=== PATIENT | female | born 1940 | race Caucasian/White ===

== ENCOUNTER 2018-01-20 08:29 | Outpatient (CLI) | payer MEDICARE | END 2018-01-20 08:30 | disposition home or self-care (01) | LOC: BICMAMMO 08:29 | PROVIDERS: ATTEND Internal Medicine | DX: Z12.31 Encounter for screening mammogram for malignant neoplasm of breast (principal); Z85.3 Personal history of malignant neoplasm of breast | CPT/HCPCS: 77063; 77067 ==

== ENCOUNTER 2018-08-19 08:49 | Outpatient (CLI) | payer MEDICARE ==
--- NOTE | 2018-08-19 12:39 | CT ---
CHEST CT SCAN WITH IV CONTRAST: HISTORY: An 78-year-old female with a history of lung mass. History of left lumpectomy. There is a poorly circumscribed left infrahilar lung mass, measuring 3.2 x 3.4 x 4.7 cm in size. The re are some smaller left hilar lymph nodes, up to 1l.6 cm in size. Minimally enlarged subcarinal lym ph node. Anterior pretracheal nodes up to 1 cm. In addition, there is a poorly circumscribed, somewhat spiculated appearing mass in the anterior righ t apex and right upper lobe, measuring approximately 1.1 x 1.2 cm in size. In addition, there is a t hird, somewhat spiculated, smaller mass, at the level of the right upper major fissure, which measure s approximately 0.7 x 0.7 x 0.9 cm in size. There are some bilateral minimal bullous emphysema perla es and some pleural-based honeycombing. There are some finger-like extension of the large left infrahilar mass, extending into the left lower lobe. Minimal linear parenchymal changes in the left lower lobe, probably related to some chronic f ibrosis or subsegmental atelectasis. There is a somewhat lower attenuation, oblong, circumscribed ma ss at the medial aspect of the left lobe of the liver, measuring approximately 0.7 x 1.2 cm, which is not definitively characterized on this study. Small left upper pole renal cyst. This low attenuati on oblong mass corresponds to a circumscribed hypoechoic mass seen on a prior 01/04/2017 ultrasound s tudy, showing no significant increase in size. IMPRESSION: 1. Large, poorly circumscribed left infrahilar mass. Small adjacent left hilar enlarged lymph nodes , as well as a borderline sized subcarinal lymph node, and some smaller anterior pretracheal nodes. 2. Somewhat spiculated right apical pulmonary nodule. 3. Small, poorly circumscribed nodule along the right major fissure, in the upper right posterior ch est. 4. Small bilateral intrapulmonary lymph nodes along the fissures bilaterally. 5. Small, probably stable, circumscribed, otherwise attenuation density at the medial aspect of the left lobe of the liver. 6. Small cysts involving the upper pole of the left kidney. Consider follow-up PET scan for further assessment. POS: [facility]
[2018-08-19] MEDS ORDERED: Iopamidol 370 76% 100 ML VIAL ONE (13:30)
== END 2018-08-19 08:50 | disposition home or self-care (01) ==
LOC: CT 08:49
PROVIDERS: ATTEND Internal Medicine Critical Care Medicine
DX: R91.8 Other nonspecific abnormal finding of lung field (principal); R59.0 Localized enlarged lymph nodes; R91.1 Solitary pulmonary nodule; N28.1 Cyst of kidney, acquired
CPT/HCPCS: 71260; 82565

== ENCOUNTER 2018-08-23 06:53 | Day surgery (SDC) | payer MEDICARE ==
[2018-08-22 14:09] VITALS: BMI 21.2
[2018-08-23] MEDS ORDERED: Fentanyl 100 MCG/2 ML VIAL ONE (08:34)
[2018-08-23] MEDS ORDERED: Lidocaine 4% PF 5 ML AMP FS SCH (09:30)
[2018-08-23] MEDS ORDERED: Sodium Chloride 0.9% 1,000 ML IV SCH (09:30)
[2018-08-23] MEDS ORDERED: Metoprolol Tartrate 5 MG/5 ML VIAL ONE (10:34)
[2018-08-23] MEDS ORDERED: Diabetic Tussin 200 MG/10 ML UDCUP PO SCH (12:15)
--- NOTE | 2018-08-24 04:18 | OP ---
DATE OF PROCEDURE: 08/23/2018 PROCEDURE PERFORMED: Fiberoptic bronchoscopy, biopsies, and brushings. INDICATION: Chronic cough, hoarseness, and left hilar mass. DESCRIPTION OF PROCEDURE: Ms. Lechuga was sedated with Anesthesia assistance, which was greatly appreciated. She was orally intubated. Could not say what certainty that her true vocal cord was paralyzed. Once she was sedated, the bronchoscope was passed on the endotracheal tube. Right lower lobe, right middle lobe and right upper lobe were inspected. No endobronchial lesions were seen. The left lower lobe was almost completely occluded with a friable mass. This was brushed, washed, and biopsied multiple times. She tolerated the procedure well. She has mild hemoptysis after the procedure. She was observed in the Day Surgery Area for several hours and was felt to be stable to go home. She was given some Robitussin DM prior to discharge for her cough. I have spent a great deal of time talking to her about maintaining her calorie intake and trying to maintain an exercise regimen. Hopefully, we will have a tissue diagnosis on . Job ID: [id number]
== END 2018-08-23 12:57 | disposition home or self-care (01) ==
LOC: SDC 06:53
PROVIDERS: ATTEND Internal Medicine Critical Care Medicine
PROC: 0BBJ8ZX Excision of Left Lower Lung Lobe, Via Natural or Artificial Opening Endoscopic, Diagnostic (ICD-10-PCS; principal; 2018-08-23)
PROC: 0BDJ8ZX Extraction of Left Lower Lung Lobe, Via Natural or Artificial Opening Endoscopic, Diagnostic (ICD-10-PCS; 2018-08-23)
DX: C34.32 Malignant neoplasm of lower lobe, left bronchus or lung (principal); F17.200 Nicotine dependence, unspecified, uncomplicated; Z79.82 Long term (current) use of aspirin; Z79.84 Long term (current) use of oral hypoglycemic drugs; Z79.899 Other long term (current) drug therapy
CPT/HCPCS: 88112; 88305; 88313; 88341; 88342; J3010; J7620

== ENCOUNTER 2018-08-27 13:17 | Emergency (ER) | payer MEDICARE ==
[2018-08-27 13:57] LABS: #Basophils 0.1 thou/uL (0.0-0.2); #Eosinphils 0.2 thou/uL (0.0-0.7); #Lymphocytes 2.9 thou/uL (1.20-3.40); #Monocytes 0.5 thou/uL (0.11-0.59); #Neutrophils 4.6 thou/uL (1.40-6.50); %Basophils 1.5 % (0.0-1.0); %Eosinophils 2.1 % (0.0-10.0); %Lymphocytes 35.3 % (21.0-51.0); %Monocytes 5.9 % (0.0-10.0); %Neutrophils 55.3 % (42.0-75.0); Hemoglobin 13.5 g/dL (12.0-16.0); Mean Corpuscular HGB CONC 34.3 g/dL (32.0-36.0); Mean Corpuscular Hemoglobin 33.3 pg (27.0-31.0); Mean Corpuscular Volume 97.1 fL (78.0-98.0); Mean Platelet Volume 8.3 fL (7.4-10.4); Platelet Count 176 thou/uL (130-400); RBC Distribution Width 11.5 % (11.5-14.5); Red Blood Cell (RBC) Count 4.05 mill/uL (4.20-5.40); White Blood Cell (WBC) Count 8.3 thou/uL (4.8-10.8)
[2018-08-27 14:24] LABS: ALT (SGPT) 18 U/L (8-55); AST (SGOT) 22 U/L (5-34); Albumin 3.8 g/dL (3.4-4.8); Alkaline Phosphatase 59 U/L (40-150); Anion Gap 12 mmol/L (10-20); BUN (Urea Nitrogen) 31 mg/dL (9.8-20.1); Bilirubin, Total 0.6 mg/dL (0.2-1.2); CK (CPK) 38 U/L (29-168); Calc. Creatinine Clearance 0 mL/min (70-130); Calcium 9.7 mg/dL (7.8-10.44); Carbon Dioxide 26 mmol/L (23-31); Chloride 106 mmol/L (98-107); Estimated GFR-MDRD 43; Globulin 3.1 g/dL (2.4-3.5); Glucose 96 mg/dL (83-110); Potassium 4.5 mmol/L (3.5-5.1); Protein, Total 6.9 g/dL (6.0-8.3); Sodium 139 mmol/L (136-145)
--- NOTE | 2018-08-27 14:37 | RAD ---
SINGLE VIEW CHEST: Date: 08/27/18 COMPARISON: 01/01/17. HISTORY: Dizziness and chest pain. FINDINGS: Single view of the chest shows an enlarged but stable cardiomediastinal silhouette with atherosclerot ic calcifications in the aorta. There appears to be a small left pleural effusion. No right pleural e ffusion is seen. Degenerative changes are seen in the spine. IMPRESSION: Small left pleural effusion. POS: [facility]
--- NOTE | 2018-08-30 14:01 | EKG ---
Test Reason : DIZZINESS Blood Pressure : / mmHG Vent. Rate : 101 BPM Atrial Rate : 101 BPM P-R Int : 122 ms QRS Dur : 124 ms QT Int : 340 ms P-R-T Axes : 053 009 099 degrees QTc Int : 440 ms Sinus tachycardia Anteroseptal infarct , age undetermined T wave abnormality, consider lateral ischemia Abnormal ECG Interference Confirmed by MERCEDES CHEEMA, DREA ([id number]), telegraph editor MONET FLORES ([id number]) on 08/30/2018 2:01:26 PM Referred By: Confirmed By:DREA LONG MD
== END 2018-08-27 16:09 | disposition home or self-care (01) ==
LOC: ERS 13:17
DX: D49.89 Neoplasm of unspecified behavior of other specified sites (principal); I25.10 Atherosclerotic heart disease of native coronary artery without angina pectoris; E78.5 Hyperlipidemia, unspecified; I10 Essential (primary) hypertension; E11.9 Type 2 diabetes mellitus without complications; Z87.891 Personal history of nicotine dependence; Z79.82 Long term (current) use of aspirin; Z79.84 Long term (current) use of oral hypoglycemic drugs; Z79.899 Other long term (current) drug therapy
CPT/HCPCS: 71045; 80053; 82550; 83880; 84484; 85025; 93005

== ENCOUNTER 2018-09-01 10:34 | Outpatient (CLI) | payer MEDICARE ==
--- NOTE | 2018-09-01 17:00 | PET ---
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 Exam requested for i nitial staging. TECHNIQUE: PET scanning with CT attenuation correction was performed from the base of the brain through the prox imal thighs following the intravenous administration of 10.5 mCi F18-FDG in the left antecubital simi a. Imaging was performed after an uptake interval of 54 minutes. COMPARISON: None. CORRELATION: CT chest of 08/19/18. FINDINGS: There is intrathoracic neena hypermetabolism in the mediastinum and hilar regions with a maximum SUV of 17.3 in the subcarinal region of the mediastinum, 10.5 in the left hilum, and 9.1 in the right hil um. No neena hypermetabolism is seen in the neck, axilla, abdomen, or pelvis. There is increased FDG localization in the left lower lobe infrahilar mass with a SUV of 18.1 and in the right upper lobe lung nodule with a SUV of 11. Increased FDG localization with a SUV of 8.5 is seen in the suprahepatic IVC mass. Hypermetabolic les ions in the liver have a SUV of 9 in the right lobe and 6 in the left lobe. No hypermetabolic adrenal or skeletal lesions are seen. There is physiologic activity in the GI and tracts, and the visualized portions of the brain. The CT scan used for attenuation correction demonstrates no evidence of pleural effusions or ascites. A calcified gallstone is present. IMPRESSION: Left lower lobe lung malignancy with metastatic disease involving the right lung, intrathoracic lymph nodes, suprahepatic IVC, and liver. POS: [facility]
== END 2018-09-01 10:35 | disposition home or self-care (01) ==
LOC: PET 10:34
PROVIDERS: ATTEND Internal Medicine Hematology & Oncology
DX: C34.32 Malignant neoplasm of lower lobe, left bronchus or lung (principal); C78.7 Secondary malignant neoplasm of liver and intrahepatic bile duct; C77.1 Secondary and unspecified malignant neoplasm of intrathoracic lymph nodes; C78.01 Secondary malignant neoplasm of right lung
CPT/HCPCS: 78815; A9552

== ENCOUNTER 2018-09-02 10:38 | Outpatient (CLI) | payer MEDICARE ==
--- NOTE | 2018-09-02 16:12 | MRI ---
MRI BRAIN WITH AND WITHOUT CONTRAST: Date: 09/02/18 HISTORY: Evaluate for intracranial metastasis. COMPARISON: None. TECHNIQUE: Brain MRI is performed with and without intravenous Gadolinium administration. Multisequential, multi planar imaging is performed. FINDINGS: No hemorrhage on the axial gradient echo sequence. Calvarium has a normal marrow signal intensity. Mi dline brain parenchymal structures are unremarkable. No parenchymal mass, mass effect, or midline ness ft. Brain volume is age-appropriate. Cortical tejada-white matter differentiation is preserved. Ventric les and sulci are patent and symmetric. T2 and FLAIR white matter hyperintensities due to chronic small vessel ischemic change. Central arterial flow-voids are maintained. Absent restricted diffusion. Adequate aeration of the sinuses and mastoid air cells. No pathologic enhancement of the brain parenc hyma. Asymmetrically prominent flow-void at the terminus of the left internal carotid artery. Aneurysm jocelyne ot be excluded, measuring approximately 6.[address] angiogram of the [place] is rec ommended. IMPRESSION: 1. No pathologic enhancement of the brain parenchyma. 2. Absent restricted diffusion. No acute infarct. 3. Possible aneurysm at the terminus of the left internal carotid artery. CT angiogram of the head i s recommended. CODE T. POS: [facility]
== END 2018-09-02 10:39 | disposition home or self-care (01) ==
LOC: MRI 10:38
PROVIDERS: ATTEND Internal Medicine Hematology & Oncology
DX: C34.90 Malignant neoplasm of unspecified part of unspecified bronchus or lung (principal)
CPT/HCPCS: 70553

== ENCOUNTER 2018-09-09 06:03 | Day surgery (SDC) | payer MEDICARE ==
[2018-09-08 16:49] VITALS: BMI 21.9
[2018-09-09] MEDS ORDERED: Fentanyl 100 MCG/2 ML VIAL ONE (06:41)
[2018-09-09] MEDS ORDERED: Propofol 500 MG/50 ML VIAL ONE (06:41)
[2018-09-09] MEDS ORDERED: Lidocaine 2% PF 5 ML VIAL ONE (06:47)
[2018-09-09] MEDS ORDERED: Bupivacaine/Epinephrine 0.25% 30 ML VIAL ONE (06:47)
[2018-09-09] MEDS ORDERED: CEFAZOLIN 2 GM/50 ML BAG ONE (07:06)
--- NOTE | 2018-09-09 09:54 | RAD ---
EXAM: CHEST ONE VIEW: History: 78-year-old female history of status post Mediport placement. Comparison: 08-27-18 FINDINGS: Right Mediport catheter placement. No pneumothorax or pleural effusion. There is some increased densi ty in the left infrahilar region with some patchy changes seen in the left lower lobe, evidence for l eft infrahilar mass with some associated atelectasis but showing improvement in the amount of atelect asis when compared to 08-27-18. IMPRESSION: Right subclavian catheter and injection port placement without pneumothorax or pleural effusion. Abno rmal opacity changes in the left infrahilar region and left base with less volume loss than on the pr ior study. POS: [facility]
[2018-09-09] MEDS ORDERED: Lidocaine 1% PF 5 ML VIAL ONE (20:23)
[2018-09-09] MEDS ORDERED: Ondansetron PF 4 MG/2 ML Vial ONE (20:23)
[2018-09-09] MEDS ORDERED: PROPOFOL 200 MG/20 ML VIAL ONE (20:23)
--- NOTE | 2018-09-12 11:31 | OP ---
DATE OF PROCEDURE: 09/09/2018 PREOPERATIVE DIAGNOSIS: Lung cancer. POSTOPERATIVE DIAGNOSIS: Lung cancer. PROCEDURE PERFORMED: Tunneled central line with subcutaneous port (MediPort right internal jugular). ANESTHESIA: TIVA, local. ESTIMATED BLOOD LOSS: Minimal. COMPLICATIONS: None. SPECIMEN: None. FINDINGS: Tip of the catheter at atriocaval junction DESCRIPTION OF PROCEDURE: The patient was taken to the operating room and laid supine position on the operating room table. After sedation was obtained, bilateral neck and chest were prepped and draped in a sterile fashion. Local anesthetic was infiltrated over the internal jugular vein. The internal jugular vein was cannulated using a 22-gauge finder needle followed by a Seldinger needle. Wire was passed into superior vena cava under fluoro guidance. A small hiren was made to at the wire entrance site. A separate 3 cm incision was made in the right upper chest. Subcutaneous pocket was made below the lower incision. Tubing for the MediPort tunneled from the inferior to the superior incision and suture sheath was placed over the wire into the superior vena cava under fluoro guidance. The dilator and wire were removed. The end of the catheter sewed into the sheath. The sheath was peeled away. The tip of the catheter was at the atriocaval junction. MediPort tubing was cut to fit the MediPort at the lower incision, connected to the MediPort, which was sewn to the chest wall in the subcutaneous pocket using Prolene. MediPort flushes and draws blood without difficulty, it was flushed with a heparin flush. The wounds were all irrigated and closed using 4-0 Monocryl and Dermabond. The patient was sent to Recovery in stable condition. All instrument counts, needle counts, and lap counts were correct. Job ID: [id number]
== END 2018-09-09 09:20 | disposition home or self-care (01) ==
LOC: SDC 06:03
PROVIDERS: ATTEND Surgery
PROC: 02HV33Z Insertion of Infusion Device into Superior Vena Cava, Percutaneous Approach (ICD-10-PCS; principal; 2018-09-09)
PROC: B518ZZA Fluoroscopy of Superior Vena Cava, Guidance (ICD-10-PCS; 2018-09-09)
DX: C34.90 Malignant neoplasm of unspecified part of unspecified bronchus or lung (principal); I10 Essential (primary) hypertension; E11.9 Type 2 diabetes mellitus without complications; Z98.51 Tubal ligation status; Z85.3 Personal history of malignant neoplasm of breast; Z87.891 Personal history of nicotine dependence; Z79.82 Long term (current) use of aspirin; Z79.899 Other long term (current) drug therapy; Z98.890 Other specified postprocedural states
CPT/HCPCS: 36561; 71045; C1788; J1642; J2001; J2405; J2704; J3010

== ENCOUNTER 2018-10-28 13:06 | Outpatient (CLI) | payer MEDICARE ==
[~2018-10-28 13:06] MED LIST: ISOVUE-370 76%-LOCM 1 ML ONE
--- NOTE | 2018-10-28 14:40 | CT ---
CT NECK WITH CONTRAST CT CHEST WITH CONTRAST CT ABDOMEN WITH CONTRAST: INDICATION: Lung cancer. TECHNIQUE: Volumetric CT data acquisition acquired with the use of IV and enteric contrast with imaging performe d from the level of the mandible to the mid sacrum. COMPARISON: Reference is made to 08/19/2018 exam. FINDINGS: Within the imaged neck soft tissues, the visualized submandibular glands, and the thyroid gland are g rossly unremarkable. There is an indwelling right side venous chest port. No cervical chain adenopa thy is visualized. Preepiglottic space and piriform sinuses are patent. No discernible glottic mass . Within the anterior right upper lobe, there is a spiculated nodule measuring 1.5 cm in diameter, s ubpleural in location. There is scattered punctate parenchymal nodularity within the right lung. Cu rvilinear opacity of the posterior and medial left lung indicates scar given its chronicity. No pleu ral effusion. There is diffuse vascular disease. Cholelithiasis is demonstrated. There is a small hepatic hypodensity, grossly stable, located within the medial segment left hepatic lobe. Additional punctate hypodensity medially within the posterior segment right hepatic lobe is stable, too small to definitively characterize. There is no discrete adrenal mass. Punctate hypoattenuation involving bilateral renal parenchyma present, too small to de finitively characterize. The spleen is unremarkable. No discrete pancreatic lesion. The small donnell l is normal in caliber. There is moderate retained fecal material in the colon, and scattered coloni c diverticula are seen. A small hiatal hernia is present. The visualized osseous structures reveal degenerative change and age-related demineralization. Ill-defined hypodensity of the right hilar region is more pronounced. Previously described thoracic lymph nodes are grossly stable. No abdominal adenopathy is seen. IMPRESSION: 1. Interval enlargement of spiculated nodule at the anterior right upper lobe. 2. Prior left lower lobe/perihilar mass has significantly reduced in volume. There is adjacent curv ilinear opacity indicating scar. Mild residual soft tissue prominence of the site of mass may relate to residual malignancy. 3. Stable punctate nodularity of the right lung. 4. Interval increase in size of hypodensity at the right hilum which may relate to progression of ad enopathy, although there is volume averaging of adjacent mediastinal fat. This area is difficult to further discern given its insinuation between bronchovascular structures. This could be further asse ssed with followup PET imaging. Incidental note of lamellated cholelithiasis. POS: [facility]
== END 2018-10-28 13:07 | disposition home or self-care (01) ==
LOC: BICCT 13:06
PROVIDERS: ATTEND Internal Medicine Hematology & Oncology
DX: C34.11 Malignant neoplasm of upper lobe, right bronchus or lung (principal); R91.8 Other nonspecific abnormal finding of lung field
CPT/HCPCS: 71260; 74160; Q9966

== ENCOUNTER 2018-11-26 10:58 | Inpatient (IN) | payer MEDICARE ==
[2018-11-26 11:44] LABS: Band 19 % (5-11); Eosinophils 1 % (0-10); Hemoglobin 9.4 g/dL (12.0-16.0); Lymphocytes 8 % (21-51); MDiff Complete? YES; Macrocytosis SLIGHT = 6-15 cells (100X) (0-5/hpf); Mean Corpuscular HGB CONC 33.2 g/dL (32.0-36.0); Mean Corpuscular Hemoglobin 34.2 pg (27.0-31.0); Mean Platelet Volume 7.4 fL (7.4-10.4); Neutrophil 72 % (42-75); Platelet Count 253 thou/uL (130-400); RBC Distribution Width 14.1 % (11.5-14.5); Red Blood Cell (RBC) Count 2.76 mill/uL (4.20-5.40); White Blood Cell (WBC) Count 39.7 thou/uL (4.8-10.8)
[2018-11-26 11:54] LABS: ALT (SGPT) 8 U/L (8-55); AST (SGOT) 15 U/L (5-34); Albumin 3.9 g/dL (3.4-4.8); Alkaline Phosphatase 95 U/L (40-150); Anion Gap 11 mmol/L (10-20); BUN (Urea Nitrogen) 28 mg/dL (9.8-20.1); Bilirubin, Total 1.3 mg/dL (0.2-1.2); CK (CPK) 19 U/L (29-168); Calc. Creatinine Clearance 0 mL/min (70-130); Calcium 9.9 mg/dL (7.8-10.44); Carbon Dioxide 27 mmol/L (23-31); Chloride 104 mmol/L (98-107); Estimated GFR-MDRD 58; Glucose 117 mg/dL (83-110); Potassium 4.3 mmol/L (3.5-5.1); Protein, Total 6.9 g/dL (6.0-8.3); Sodium 138 mmol/L (136-145)
--- NOTE | 2018-11-26 12:25 | CT ---
LUMBAR SPINE CT SCAN WITHOUT IV CONTRAST: Date: 11/26/18 HISTORY: Low back pain. History of small cell lung cancer. FINDINGS: Bony demineralization. Laminectomy changes at L4-L5 with 0.7 Grade I anterolisthesis of L4 on L5. No evidence for overt metastasis. Generalized disc desiccation changes, and ligament and facet hypertrop hic changes. L1-L2 and L2-L3 disc levels demonstrate no significant stenosis. At L3-L4, there is mild central canal and moderate lateral recess stenosis, and bilateral foraminal s tenosis. Anterolisthesis of L4 on L5, with probable moderate canal stenosis. Thecal sac and disc differentiati on is limited. Moderate to severe bilateral foraminal stenosis. IMPRESSION: No acute fracture or dislocation. Bony demineralization. No evidence for focal metastasis. Postop ag inectomy changes at L4-L5 with Grade I anterolisthesis and associated canal, lateral recess, and fora sindi stenosis. Central canal, lateral recess, and foraminal stenosis at L3-L4. Foraminal stenosis at L5-S1 as above. POS: [facility]
[2018-11-26 13:13] LABS: Bilirubin Negative (Negative); Blood, Urine Negative (Negative); Clarity CLEAR (Clear); Glucose, Urine (Dipstick) Negative (Negative); Leukocyte Negative (Negative); Nitrite Negative (Negative); Protein, Urine (Dipstick) Negative (Neg-Trace); Specific Gravity, Urine 1.017 (1.002-1.036); Urobilinogen 0.2 mg/dL (0.2-1.0)
[2018-11-26] MEDS ORDERED: Ondansetron ODT 4 MG TAB PO PRN (16:12)
[2018-11-26] MEDS ORDERED: Morphine 4 MG/ML VIAL SLOW IVP PRN ×2 (16:16)
[2018-11-26] MEDS ORDERED: Morphine 4 MG/ML VIAL ONE (16:21)
[2018-11-26] MEDS ORDERED: Ondansetron PF 4 MG/2 ML Vial ONE (16:21)
--- NOTE | 2018-11-26 17:04 | CON ---
DATE OF CONSULTATION: REASON FOR CONSULT: Lung cancer. HISTORY OF PRESENT ILLNESS: Ms. Lechuga is an 78-year-old female with extensive stage small cell carcinoma. She recently completed 4 cycles of chemotherapy and immunotherapy. Last cycle was on November 24. She did receive a Neulasta injection on that day. Over the past week, she has complained of low back pain. Urinalysis was done in our office, which was negative. She was started on tramadol p.r.n. This morning, her called and said that she had no relief with the tramadol and she had an episode of emesis. She was referred to the emergency room for further evaluation. In the emergency room, she was noted to have an elevated BUN, slightly dehydrated. She was given IV fluids. She had a white count of 39.7. She underwent a CT scan of her lumbar spine, which showed no acute fracture or dislocation. There was demineralization of the bone. There was no evidence of metastasis. She did have a laminectomy on L4 and L5. There was grade 1 anterolisthesis and associated canal stenosis. The patient was given morphine with resolution of her pain. PAST MEDICAL HISTORY: 1. 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 2. Orthostatic hypotension of unknown etiology. 3. Diabetes. 4. Breast cancer in 1996. PAST SURGICAL HISTORY: 1. Breast surgery. 2. Low back laminectomy. 3. Atopic . ALLERGIES: NO KNOWN DRUG ALLERGIES. HOME MEDICATIONS: 1. Aspirin 81 mg daily. 2. Atorvastatin 20 mg daily. 3. Lasix 20 mg daily. 4. Lisinopril 10 mg daily. 5. Metformin 500 mg daily. 6. Midodrine daily. 7. Tramadol p.r.n. FAMILY HISTORY: Noncontributory. SOCIAL HISTORY: , has 3 children. Lives with her spouse. Twenty pack year history of smoking. No alcohol or illicit drug use. REVIEW OF SYSTEMS: A 10-point review of systems is positive for weight loss, poor appetite, emesis, and back pain. Otherwise negative. PHYSICAL EXAMINATION: VITAL SIGNS: She is afebrile. Her BP is elevated at 171/81. GENERAL: Slightly cachectic female, in no acute distress. HEENT: Normocephalic and atraumatic. Pupils are equal and reactive to light. NECK: Supple. CV: Regular rate and rhythm. LUNGS: Diminished throughout. ABDOMEN: Soft and nontender. Bowel sounds are positive. EXTREMITIES: No clubbing, cyanosis, or edema. SKIN: No rash. HEMATOLOGICAL: No petechiae or purpura. NEUROLOGICAL: Nonfocal. PSYCH: The patient is alert, oriented, and appropriate. LABORATORY DATA: Pertinent labs and x-rays, current WBCs are 39.7, hemoglobin 9.4, hematocrit 28.5, and platelet count 253,000. She has 72% neutrophils, 19% bands , and 9% lymphocytes. Sodium is 138, potassium 4.3, chloride 104, CO2 is 27, BUN is 28, creatinine 0.93, calcium 9.9, bilirubin 1.3, AST is 15, ALT is 8, alkaline phosphatase is 95, serum total protein is 6.9, albumin 3.9, and globulin 3. Troponin is negative and BNP is 181.3. Urine has trace ketones, otherwise negative. Radiology per HPI. ASSESSMENT: 1. Extensive stage small cell lung cancer, status post chemotherapy and immunotherapy with Neulasta support. 2. Low back pain. 3. Dehydration. DISCUSSION: The patient has been receiving IV fluids. She has had no emesis since arrival. We will provide nausea medicine p.r.n. Her white count is elevated. It is likely Neulasta's effect; however, this is fairly soon for the Neulasta to begin working. We will monitor her CBC daily. Lower back pain may be related to her prior laminectomy. We will add Norman p.r.n. and she may need to follow up with her orthopedic surgeon in the outpatient setting. There is no evidence of metastasis in that area. Thank you for the consult. We will follow along with her hospital course. Job ID: [id number] [facility]
[2018-11-26] MEDS ORDERED: Dextrose 50% Abboject 50 ML SYRINGE SLOW IVP PRN (17:32)
[2018-11-26] MEDS ORDERED: Dextrose 5% in Water 1,000 ML IV PRN (17:32)
[2018-11-26] MEDS ORDERED: HumaLOG 300 UNITS/3 ML VIAL SC PRN (17:32)
[2018-11-26] MEDS: Sodium Chloride 0.9% 1,000 ML IV SCH (18:28)
--- NOTE | 2018-11-26 18:41 | HP ---
PRIMARY CARE PHYSICIAN: Gustabo Lombardo MD ONCOLOGIST: Yeni Patel MD CHIEF COMPLAINT: Nausea. HISTORY OF PRESENT ILLNESS: Ms. Lechuga is an 78-year-old female, who reported to the emergency room today for right-sided lower back pain, nausea, vomiting, dyspnea on exertion, generalized weakness, decreased oral intake, and headache. The patient's pertinent medical history, she was recently diagnosed with small cell carcinoma of the left lung with extensive metastasis to the liver. She underwent chemotherapy on . reports that this is her fourth cycle of chemo, after which she will go for PET scans and then follow up with Dr. Patel. Other past medical history is diabetes in 2007, breast cancer in 1996, recent diagnosis of orthostatic hypotension and she was placed on Midodrine for that with moderate success. reports that the patient complains of feeling unsteady on her feet, has some dizziness, and walks around the house with care, especially when ambulating to the bathroom. She does not want to fall. During the evaluation in the emergency room, she was found to have ketone in her urine, but otherwise negative. Lumbar of the spine showed no acute fracture or dislocation. No evidence of focal metastasis. She does have some postop laminectomy changes at L4-L5 with grade 1 anterolisthesis and associated canal lateral recess and [place] stenosis. BUN was 28, glucose 117, and bilirubin 1.3. BNP was 181. White blood cell count is elevated at 39.7, hemoglobin at 9.4, and hematocrit 28.5. She is going to be admitted to the oncology unit for IV hydration, pain medications, and consultation with Oncology. PAST MEDICAL HISTORY: As above, diabetes, breast cancer, and orthostatic hypotension. PAST SURGICAL HISTORY: Breast surgery in 1996, lower back laminectomy in 1997, and atopic in 1969. FAMILY HISTORY: Pertinent for celiac disease. PERSONAL AND SOCIAL HISTORY: The patient is , lives at home with her , has 3 children, was a former smoker. Smoked half a pack for 20 years. Denies alcohol use. Denies any illicit drug use. She is a retired wood shop teacher. ALLERGIES: NONE. CURRENT MEDICATIONS: Per Cancer Clinic note; 1. Midodrine 2.5 mg tablet. 2. Aspirin 81 mg. 3. Atorvastatin 20. 4. Centrum Silver. 5. Cinnamon. 6. Furosemide. 7. Lisinopril. 8. Metformin. 9. Super B-50 complex. REVIEW OF SYSTEMS: GENERAL: The patient denies chills or fever. Does report some generalized weakness. EYES: Denies any vision changes or any eye pain. ENT: Denies any sore throat or rhinorrhea. CARDIOVASCULAR: Denies chest pain or palpitations. Does report some dyspnea on exertion. RESPIRATORY: Denies shortness of breath or cough. GI: Reports appetite changes. Reports nausea. Does report vomiting yesterday. : Denies any dysuria or hematuria. MUSCULOSKELETAL: Reports back pain, right-sided lower back, which is chronic. She reports the nature of bed worse lately. Denies any paresthesias, seizures, sensory changes, speech changes, paralysis, or confusion. Does report some dizziness with ambulation. PSYCH: Denies any suicidal or homicidal ideation. PHYSICAL EXAMINATION: VITAL SIGNS: Blood pressure 171/78, pulse is 73, respirations 18, temperature 98.2, and O2 saturations are 97% on room air. CONSTITUTIONAL: Appears nontoxic, appears pain free, is oriented to person, place, and time. HEENT: Head is atraumatic and normocephalic. Eyes, conjunctiva pale. Pupils are equally round and reactive to light. ENT, mucous membranes are dry. Mouth exam is normal. NECK: Trachea is midline. Normal range of motion. RESPIRATORY: Chest, breath sounds are clear. Chest expansion is equal. CARDIOVASCULAR: Regular heart rate and rhythm with a 4/6 systolic ejection murmur. ABDOMEN: Nontender. No distention. No peritoneal signs. BACK: Normal range of motion. Does have some tenderness to L5-S1 on palpation. No CVA tenderness. EXTREMITIES: Upper extremity, normal inspection. Normal range of motion. Radial pulses equal bilaterally. Lower extremity, normal inspection. Normal range of motion. Motor strength is normal. Sensation intact. Pedal pulses equal bilaterally. No edema is noted. NEURO: The patient is oriented to person, place, and time. Speech is normal. Memory is normal. Cranial nerves 2 through 12 were grossly intact. No focal sensory or motor deficits are noted. SKIN: Warm, dry, and pale in color. No rashes noted. PSYCH: Has a normal affect. IMAGING: EKG in the emergency room shows beat per minute 90, conduction with complete left bundle branch block, nonspecific intraventricular block, and nonspecific T-waves. PERTINENT LABORATORY DATA: UA was done with ketones present, otherwise negative. CK is 19. Sodium 138, potassium 4.3, chloride 104, carbon dioxide 27, gap is 11, BUN is 28, creatinine is 0.93, estimated GFR is 58, glucose is 117, and bilirubin 1.3. Other liver enzymes are unremarkable. BNP is 181. First troponin is undetectable. White blood cell count is 39.7, hemoglobin 9.4, hematocrit 28.5, and platelet count is 253. ASSESSMENT AND PLAN: 1. Dehydration, generalized weakness related to lung cell carcinoma with metastasis to the liver. We will start IV fluids. Provide pain medicine as needed. We will consult Oncology. Alisa Nunn NP has been by to see patient in the emergency room. Reports that she will follow the patient while admitted. 2. Nausea and vomiting. We will order some Zofran p.o. or IV as needed. Diet as tolerated. 3. Orthostatic hypotension. We will restart Midodrine. We will trend. 4. Back pain, chronic. We will provide pain medication as tolerated. We will follow. 5. Gastrointestinal and deep venous thrombosis prophylaxis will be started. 6. Diabetes. We will start home medications. We will place sliding scale coverage with Accu-Cheks before meals and at bedtime. 7. Hospital course will be dependent on clinical findings. Job ID: [id number]
[2018-11-26] MEDS: Ondansetron PF 4 MG/2 ML Vial IVP PRN (20:27)
[2018-11-26] MEDS: Senokot S 8.6-50 MG TAB PO SCH (20:35)
[2018-11-26] MEDS ORDERED: Lorazepam 2 MG/ML VIAL SLOW IVP PRN (21:53)
[2018-11-26] MEDS ORDERED: hydrALAZINE 20 MG/ML VIAL SLOW IVP PRN (21:53)
[2018-11-26] MEDS ORDERED: Digoxin 0.5 MG/2 ML AMP ONE (22:21)
[2018-11-26] MEDS ORDERED: Nitroglycerin 0.4 MG TAB (25 Tab Bottle) PO PRN (22:22)
[2018-11-26 22:27] LABS: Hemoglobin 9.2 g/dL (12.0-16.0); Mean Corpuscular HGB CONC 33.1 g/dL (32.0-36.0); Mean Platelet Volume 7.6 fL (7.4-10.4); Platelet Count 213 thou/uL (130-400); RBC Distribution Width 14.4 % (11.5-14.5); Red Blood Cell (RBC) Count 2.62 mill/uL (4.20-5.40); White Blood Cell (WBC) Count 41.8 thou/uL (4.8-10.8)
[2018-11-26] MEDS ORDERED: Digoxin 0.5 MG/2 ML AMP SLOW IVP SCH (22:30)
[2018-11-26] MEDS ORDERED: Sodium Chloride 0.9% 1,000 ML IV SCH (22:30)
[2018-11-26] MEDS ORDERED: Magnesium 2 GM/50 ML 2 GM in Premix Bag 1 BAG IVPB SCH (22:30)
[2018-11-26 22:43] LABS: Anion Gap 15 mmol/L (10-20); BUN (Urea Nitrogen) 25 mg/dL (9.8-20.1); CK (CPK) 19 U/L (29-168); Calc. Creatinine Clearance 0 mL/min (70-130); Calcium 9.2 mg/dL (7.8-10.44); Carbon Dioxide 20 mmol/L (23-31); Chloride 108 mmol/L (98-107); Estimated GFR-MDRD 70; Glucose 144 mg/dL (83-110); Sodium 139 mmol/L (136-145)
[2018-11-26] MEDS ORDERED: Diltiazem 125 MG in Sodium Chloride 0.9% 100 ML IVPB SCH (22:45)
[2018-11-26 22:48] LABS: Band 19 % (5-11); CKMB 0.7 ng/mL (0-6.6); Lymphocytes 4 % (21-51); MDiff Complete? YES; Macrocytosis SLIGHT = 6-15 cells (100X) (0-5/hpf); Neutrophil 77 % (42-75); Troponin I 0.024 ng/mL (< 0.028)
--- NOTE | 2018-11-26 22:49 | RAD ---
AP VIEW CHEST: 11/26/18 HISTORY: Chest pain. AP view chest is obtained on 11/26/18. Comparison made to a previous exam from 09/09/18. AP view chest demonstrates a right jugular Mediport catheter in place. Mild pulmonary vascular conges tion is seen. No evidence of acute intrathoracic abnormality seen. No evidence of pneumonia seen. No evidence of pneumothorax seen. No evidence of rib fractures seen. There is an old right 8th rib fract ure which is stable and unchanged. IMPRESSION: No evidence of acute intrathoracic abnormality seen. POS: [facility]
[2018-11-26 23:23] LABS: INR-International Normal Ratio 1.1; PTT 26.4 SEC (22.9-36.1); Prothrombin Time 13.8 SEC (12.0-14.7)
--- NOTE | 2018-11-26 23:44 | PDOC.EVN ---
Event Note - Event Note Event Note: Code Green called - HR in 190s. EKG - Afib with RVR. Started on Cardizem drip after Bolus. Digoxin 0.25 mg IV x 1. Transfer to [facility]. Stat labs including d- dimer ordered. Echo. Cardio consult in AM. No history of Afib. One dose of Lovenox.
[2018-11-26] MEDS ORDERED: Magnesium Sulfate 4 GM in Sodium Chloride 0.9% 250 ML 250 ML IVPB SCH (23:45)
[2018-11-26] MEDS ORDERED: Enoxaparin Sodium 60 MG/0.6 ML SYRINGE SC SCH (23:59)
[2018-11-27] MEDS: Sodium Chloride 0.9% 1,000 ML IV SCH ×3 (00:41→15:54)
[2018-11-27 02:09] LABS: White Blood Cell (WBC) Count 45.3 thou/uL (4.8-10.8)
[2018-11-27 02:21] LABS: Band 12 % (5-11); Lymphocytes 1 % (21-51); MDiff Complete? YES; Mean Corpuscular HGB CONC 32.8 g/dL (32.0-36.0); Mean Corpuscular Hemoglobin 34.7 pg (27.0-31.0); Mean Platelet Volume 7.3 fL (7.4-10.4); Monocytes 2 % (0-10); Neutrophil 85 % (42-75); Platelet Count 182 thou/uL (130-400); RBC Distribution Width 14.2 % (11.5-14.5); Red Blood Cell (RBC) Count 2.31 mill/uL (4.20-5.40)
[2018-11-27 02:27] LABS: Troponin I 0.119 ng/mL (< 0.028)
[2018-11-27 02:50] LABS: ALT (SGPT) 9 U/L (8-55); AST (SGOT) 16 U/L (5-34); Albumin 3.3 g/dL (3.4-4.8); Alkaline Phosphatase 76 U/L (40-150); Anion Gap 12 mmol/L (10-20); BUN (Urea Nitrogen) 23 mg/dL (9.8-20.1); Bilirubin, Total 1.1 mg/dL (0.2-1.2); Calc. Creatinine Clearance 63 mL/min (70-130); Calcium 8.8 mg/dL (7.8-10.44); Carbon Dioxide 23 mmol/L (23-31); Chloride 110 mmol/L (98-107); Estimated GFR-MDRD 77; Globulin 2.5 g/dL (2.4-3.5); Glucose 109 mg/dL (83-110); Magnesium 2.5 mg/dL (1.6-2.6); Potassium 3.8 mmol/L (3.5-5.1); Protein, Total 5.8 g/dL (6.0-8.3); Sodium 141 mmol/L (136-145)
[2018-11-27] MEDS ORDERED: Magnesium 2 GM/50 ML 2 GM in Premix Bag 1 BAG IVPB SCH (03:00)
[2018-11-27] MEDS ORDERED: Digoxin 0.5 MG/2 ML AMP SLOW IVP SCH (04:00)
[2018-11-27 06:28] LABS: Troponin I 0.383 ng/mL (< 0.028)
[2018-11-27] MEDS ORDERED: Enoxaparin Sodium 40 MG/0.4 ML SYRINGE SC SCH (09:00)
[2018-11-27] MEDS ORDERED: Aspirin 325 mg Enteric Coated Tablet PO SCH (09:00)
[2018-11-27] MEDS ORDERED: Digoxin 0.25 MG TAB PO SCH (09:00)
[2018-11-27] MEDS: Senokot S 8.6-50 MG TAB PO SCH ×2 (10:30→21:03)
[2018-11-27] MEDS: Aspirin 81 mg Enteric Coated Tablet PO SCH (10:30)
[2018-11-27] MEDS: Pantoprazole 40 MG VIAL IVP SCH (10:31)
--- NOTE | 2018-11-27 10:43 | PRG ---
DATE OF SERVICE: 11/27/2018 SUBJECTIVE: The patient is seen and examined at the bedside. She is feeling significantly better. Her chest pain and pressure have completely gone. Her back pain has completely gone. OBJECTIVE: VITAL SIGNS: Blood pressure is 146/69, pulse is 86, respiratory rate 13, O2 saturation is 100%. HEENT: Head is atraumatic and normocephalic. She has alopecia, most likely secondary to post chemo. Sclerae nonicteric. Oral mucosa is moist. NECK: Supple. LUNGS: Clear. HEART: S1 and S2, regular. No S3. No S4. ABDOMEN: Soft, nontender. Bowel sounds are present. No organomegaly. MUSCULOSKELETAL: Lower back showed some pain on palpation in the lumbar spine area in the midline. EXTREMITIES: No clubbing, cyanosis, or edema. NEUROLOGIC: She is alert and oriented x4. There are no any motor or sensory deficits. Cranial nerves are intact. LABORATORY DATA: Labs showed white count up to 45.3, hemoglobin 8.0, hematocrit 24.4, platelet count is 182,000, 85% neutrophils, 12 bands. INR 1.1. Sodium of 141, potassium 3.8, chloride 110, BUN 23. The rest of chemistry within normal limits. Troponins 0.024, 0.119, 0.383. Cortisol level 7.0. IMPRESSION: 1. New onset of atrial fibrillation with rapid ventricular response, controlled rate with Cardizem drip. She converted to normal sinus rhythm this morning. 2. Nausea and vomiting, status post chemotherapy 3 days ago. 3. Orthostatic hypotension, most likely related to dehydration, volume loss. 4. Back pain. CT scan is negative for any metastatic disease or any significant. 5. Diabetes mellitus type 2. DISCUSSION: The patient's pain has improved significantly. She does not have any nausea, vomiting, or any abdominal pain. She does not have any back pain anymore. Her white count is elevated, but again she was given Neulasta on the 24 of November with her chemotherapy and thus most likely a reaction to that stimulating factor. She will be seen by Cardiology today for further evaluation of her atrial fibrillation. She had echocardiogram done apparently 2 weeks ago, so we are not going to repeat the one which was ordered by the admitting physician. Her white count stays elevated. We will consult ID. Job ID: [id number]
[2018-11-27 11:23] LABS: CKMB 3.6 ng/mL (0-6.6)
[2018-11-27] MEDS ORDERED: Amiodarone 200 MG TAB PO SCH (14:30)
--- NOTE | 2018-11-27 16:46 | CON ---
DATE OF CONSULTATION: 11/27/2018 HISTORY OF PRESENT ILLNESS: Ms. Lechuga is an 78-year-old female I am very familiar with. She underwent bronchoscopy at the end of last year and was diagnosed with small-cell cancer and she is being cared for by Dr. Patel since. She presented with nausea, vomiting, and back pain. She subsequently has been admitted and says all of her complaints are better. She has a history of orthostatic hypotension and is still getting dizzy when she stands up. I explained that to both to her and her again. PAST MEDICAL HISTORY: Remarkable for diabetes, breast cancer, laminectomy in the past and an ectopic in 1969. FAMILY HISTORY: Negative for lung disease in early age. SOCIAL HISTORY: She is a former smoker. Nondrinker. She is retired teacher. ALLERGIES: SHE HAS NO DRUG ALLERGIES. REVIEW OF SYSTEMS: 10 point review of systems completed, negative. PHYSICAL EXAMINATION: GENERAL: She just received chemo, I believe five days ago. VITAL SIGNS: She has a temperature of 100. Blood pressure 149/72, respiratory rate is 18, and heart rate is 80. HEAD AND NECK: Remarkable only for alopecia. LUNGS: Clear. HEART: Regular rhythm. S1 and S2 are normal. ABDOMEN: Soft and nontender. EXTREMITIES: Without clubbing, cyanosis, or edema. LABORATORY DATA: White count is 45.3, hemoglobin 8.0, and platelets are 182. Sodium 141, potassium 3.8, chloride 110, bicarb 23, BUN 23, and creatinine 0.73. IMPRESSION: 1. Small-cell cancer, completing her chemotherapy this last week. 2. New onset of atrial fibrillation, which is an incidental finding while she was in the emergency department, now on a Cardizem drip. She is back in sinus rhythm. 3. Nausea and vomiting. 4. Orthostatic hypotension. This is not a new problem. 5. Back pain. 6. Diabetes. 7. We will continue to follow. She will need to remain in monitor bed for a while because of her atrial fibrillation, but probably could be transferred to the telemetry unit. TIME SPENT: This is a 50-minute consult, with greater than 50% of the time was spent on the unit coordinating care. Job ID: [id number] [facility]
[2018-11-27] MEDS: Amiodarone 200 MG TAB PO SCH (21:02)
[2018-11-28] MEDS: Sodium Chloride 0.9% 1,000 ML IV SCH ×2 (01:27→10:09)
[2018-11-28 06:12] LABS: Band 8 % (5-11); Hemoglobin 7.4 g/dL (12.0-16.0); Lymphocytes 9 % (21-51); MDiff Complete? YES; Mean Corpuscular HGB CONC 33.2 g/dL (32.0-36.0); Mean Corpuscular Hemoglobin 35.4 pg (27.0-31.0); Mean Platelet Volume 7.7 fL (7.4-10.4); Neutrophil 83 % (42-75); Platelet Count 178 thou/uL (130-400); RBC Distribution Width 14.2 % (11.5-14.5); White Blood Cell (WBC) Count 27.4 thou/uL (4.8-10.8)
[2018-11-28 06:21] LABS: ALT (SGPT) Less than 7 U/L (8-55); AST (SGOT) 17 U/L (5-34); Albumin 3.2 g/dL (3.4-4.8); Alkaline Phosphatase 88 U/L (40-150); Anion Gap 10 mmol/L (10-20); BUN (Urea Nitrogen) 19 mg/dL (9.8-20.1); Bilirubin, Total 1.1 mg/dL (0.2-1.2); Calc. Creatinine Clearance 66 mL/min (70-130); Calcium 8.4 mg/dL (7.8-10.44); Carbon Dioxide 24 mmol/L (23-31); Chloride 112 mmol/L (98-107); Estimated GFR-MDRD 78; Globulin 2.4 g/dL (2.4-3.5); Glucose 88 mg/dL (83-110); Protein, Total 5.6 g/dL (6.0-8.3); Sodium 142 mmol/L (136-145)
[2018-11-28] MEDS: Senokot S 8.6-50 MG TAB PO SCH ×2 (10:09→20:12)
[2018-11-28] MEDS: Amiodarone 200 MG TAB PO SCH ×2 (10:10→20:11)
[2018-11-28] MEDS: Aspirin 81 mg Enteric Coated Tablet PO SCH (10:10)
[2018-11-28] MEDS: Pantoprazole 40 MG VIAL IVP SCH (10:10)
--- NOTE | 2018-11-28 12:18 | PRG ---
DATE OF SERVICE: 11/28/2018 SUBJECTIVE: Ms. Lechuga is clinically unchanged. Her atrial fib rates in the 90s when I was in the room this morning. OBJECTIVE: VITAL SIGNS: Stable. Blood pressure 153/78, respiratory rate in the low 20s. LUNGS: Clear. HEART: Regular rhythm. ABDOMEN: Soft. LABORATORY DATA: White count 27.4, hemoglobin 7.4, platelets 178,000. Sodium 142, potassium 4, chloride 112, bicarb 24, BUN 19, and creatinine 0.7. Intake and output positive 1989. IMPRESSION: I feel she is adequately hydrated. Her drop in hemoglobin is likely secondary to being 2 L positive with her intake and output. I think IV fluids can be hep-locked. She will continue with treatment of her atrial fibrillation by Cardiology/the hospitalist. In my opinion, she is stable to move out of the intermediate care unit and could be managed in a monitored bed anywhere else in the hospital. Job ID: [id number]
[2018-11-28 12:35] VITALS: BMI 23.8
[2018-11-28] MEDS: Ondansetron PF 4 MG/2 ML Vial IVP PRN (12:55)
--- NOTE | 2018-11-28 16:12 | PRG ---
DATE OF SERVICE: 11/28/2018 SUBJECTIVE: The patient is still feeling a bit nauseated, but has been able to keep some food down, mostly liquids. Reports she has not actually had any vomiting since Wednesday. OBJECTIVE: VITAL SIGNS: Temperature is 99, pulse is 93, BP 159/71, O2 saturation 100%. GENERAL APPEARANCE: Age-appropriate female with alopecia, in no distress, awake, pleasant, conversant, appears to have some difficulty remembering some events from even earlier today. HEART: Regular with 2/6 murmur at the left lower sternal border. LUNGS: Clear to auscultation bilaterally. Good chest wall expansion and air exchange. ABDOMEN: Soft, nontender, and nondistended. Positive bowel sounds. No masses. No organomegaly. EXTREMITIES: Warm and dry without edema. LABORATORY DATA: White count 27.4, hemoglobin 7.4, platelets 178. Chloride 112, otherwise chemistries normal. IMPRESSION AND PLAN: 1. Nausea and vomiting, status post chemotherapy, appears to be resolving. She is actually able to take some p.o., although not a great deal. Still feels some subjective nausea. Continue p.r.n. Zofran. 2. New onset atrial fibrillation with rapid ventricular response. She has converted back to sinus rhythm. Continue with amiodarone. No indication for long-term anticoagulation, especially in light of some potential contraindication because of her active cancer with chemotherapy. 3. Back pain. CT was negative for any metastatic disease. The patient did not remember that she had back surgery and this is most likely skeletal in nature. 4. Diabetes mellitus, stable. 5. Orthostatic hypotension, likely related to some volume depletion, improved. 6. Leukocytosis, appears to be secondary to Neupogen and has peaked and is now coming down a bit. DISPOSITION: Transfer out of the intermediate care to the tele floor. She remains in sinus rhythm. White count continues to resolve and she is able to take p.o., she will be able to discharge soon. Job ID: [id number]
[2018-11-29 06:23] LABS: ALT (SGPT) 7 U/L (8-55); AST (SGOT) 17 U/L (5-34); Albumin 3.1 g/dL (3.4-4.8); Alkaline Phosphatase 94 U/L (40-150); Anion Gap 8 mmol/L (10-20); BUN (Urea Nitrogen) 15 mg/dL (9.8-20.1); Bilirubin, Total 0.9 mg/dL (0.2-1.2); Calc. Creatinine Clearance 65 mL/min (70-130); Calcium 8.5 mg/dL (7.8-10.44); Carbon Dioxide 27 mmol/L (23-31); Chloride 110 mmol/L (98-107); Estimated GFR-MDRD 77; Globulin 2.3 g/dL (2.4-3.5); Glucose 90 mg/dL (83-110); Potassium 3.8 mmol/L (3.5-5.1); Protein, Total 5.4 g/dL (6.0-8.3); Sodium 141 mmol/L (136-145)
[2018-11-29] MEDS: Aspirin 81 mg Enteric Coated Tablet PO SCH (08:33)
[2018-11-29] MEDS: Amiodarone 200 MG TAB PO SCH ×2 (08:33→20:40)
[2018-11-29] MEDS: Senokot S 8.6-50 MG TAB PO SCH ×2 (08:38→20:40)
[2018-11-29] MEDS ORDERED: Pantoprazole 40 MG GRANULES PACKET PO SCH (09:00)
--- NOTE | 2018-11-29 09:35 | PQF ---
FELECIA CARL DAVID R MD [id number] [facility]- B11 [id number] CLINICAL DOCUMENTATION IMPROVEMENT CLARIFICATION FORM: ICD-10 Updated PLEASE DO AN ADDENDUM TO THE PROGRESS NOTE WITH ANY DOCUMENTATION UPDATES OR ADDITIONS AND CARRY THROUGH TO DC SUMMARY. THANK YOU. DATE: 11/29 ATTN: DR. CRUZITO DUNN Please exercise your independent, professional judgment in responding to the clarification form. Clinical indicators are provided on the bottom of this form for your review. Please check appropriate box(s): AMI TYPE: [ ] NSTEMI (IA type I) [x ] NSTEMI due to Demand Ischemia (AMI Type II) [ ] Demand Ischemia without IA [ ] Other diagnosis [ ] Unable to determine In addition, please specify: Present on Admission (POA): [ x ] Yes [ ] No [ ] Unable to determine CLINICAL INDICATORS - SIGNS / SYMPTOMS / LABS TROP 0.024, 0.119, 0.383. 0.478 (11/27) CODE GREEN DOCUMENTATION 11/26: PT IS DIAPHORETIC & C/O CP; EKG COMPLETE, PT APPEARS TO BE IN AFIB W/RVR, HR IN THE 200'S. CODE GREEN CALLED. EVENT NOTE (LADHA) 11/26: CODE GREEN CALLED - HR IN 190'S. EKG - AFIB W/RVR. STARTED ON CARDIZEM DRIP AFTER BOLUS. DIGOXIN 0.25 MG IV X1. TRANSFER TO [facility]. NO HISTORY OF AFIB. ONE DOSE OF LOVENOX. PN 11/27 (JENA): SUBJ: HER CHEST PAIN & PRESSURE HAVE COMPLETELY GONE. HER BACK PAIN HAS COMPLETELY GONE. IMPRESSION: 1) NEW ONSET AFIB W/RVR, ...SHE CONVERTED TO NORMAL SINUS RHYTHM THIS MORNING RISKS: CODE GREEN FOR NEW ONSET AFIB W/RVR (HR 160-200) METASTATIC SMALL CELL LUNG CANCER TREATMENT: CU MONITORING CARDIZEM BOLUS W/GTT CARDIOLOGY CONSULT (PENDING) THANK YOU! Sheba (This form is maintained as a part of the permanent medical record) 2014 [employer]. All Rights Reserved Sheba Gardner RN, BSN [email or web address] Office: [phone] [facility]
--- NOTE | 2018-11-29 09:59 | PRG ---
DATE OF SERVICE: 11/29/2018 SUBJECTIVE: Ms. Lechuga complains of some nausea. She has no chest pain or pressure. She is maintaining normal sinus rhythm. OBJECTIVE: VITAL SIGNS: Her blood pressure is 134/65, pulse 88, it is regular. It is sinus on the monitor. LUNGS: Clear. CARDIAC: Normal S1, normal S2. ABDOMEN: Soft and nontender. ASSESSMENT: 1. Small cell lung cancer, status post chemotherapy. 2. Episode of atrial fibrillation with a rapid rate. 3. Left bundle branch block. 4. Also anemic, suspect some GI blood loss. Hemoglobin down to 7.4. PLAN: 1. Continue to monitor blood counts. May need transfusion. 2. Continue amiodarone. 3. Could not be anticoagulated in view of this progressive anemia. 4. We will go ahead and stop the aspirin at the present time in view of the anemia. Job ID: [id number]
[2018-11-29 11:25] LABS: Hemoglobin 8.2 g/dL (12.0-16.0); Mean Corpuscular HGB CONC 32.6 g/dL (32.0-36.0); Mean Corpuscular Hemoglobin 34.4 pg (27.0-31.0); Mean Platelet Volume 7.8 fL (7.4-10.4); Platelet Count 170 thou/uL (130-400); RBC Distribution Width 14.1 % (11.5-14.5); Red Blood Cell (RBC) Count 2.39 mill/uL (4.20-5.40); White Blood Cell (WBC) Count 10.1 thou/uL (4.8-10.8)
[2018-11-29 11:56] LABS: Band 17 % (5-11); Eosinophils 1 % (0-10); Lymphocytes 14 % (21-51); MDiff Complete? YES; Macrocytosis SLIGHT = 6-15 cells (100X) (0-5/hpf); Monocytes 2 % (0-10); Neutrophil 65 % (42-75); Platelet Morphology Comment Appears Adequate; Polychromasia SLIGHT = 2-3 cells (100X) (0-2/hpf); Reactive Lymphocytes 1 % (0-10)
--- NOTE | 2018-11-29 18:01 | PRG ---
DATE OF SERVICE: 11/29/2018 SUBJECTIVE: The patient continues to have some nausea. She has not had significant vomiting and continues to try to eat as best she can, still has some "reflux, belching" that is frequent. No other major complaints. OBJECTIVE: VITAL SIGNS: Temperature is 99.0, O2 saturation 96% on room air, BP 154/72, pulse is 78. GENERAL APPEARANCE: Age-appropriate female, alopecia, in no distress, awake, pleasant. HEART: Regular rate and rhythm without murmurs. LUNGS: Clear to auscultation bilaterally. ABDOMEN: Soft, nontender, and nondistended. Positive bowel sounds. No masses. No organomegaly. EXTREMITIES: Warm and dry with no edema. NEUROLOGIC: She is intact, appears to have a bit of dementia, but very pleasant. LABORATORY DATA: White count is 10.1, hemoglobin 8.2, platelets 170. Sodium 141, potassium 3.8, chloride 110, BUN 15, creatinine 0.73, glucose 111, AST is 17, ALT 7, alkaline phosphatase 94. IMPRESSION AND PLAN: 1. Nausea and vomiting status post chemotherapy, at least stable at this point. I talked to Alisa Nunn, this is going to be unfortunately as part of her treatment regimen. She needs to try to time her medications as best possible and try to eat. 2. Atrial fibrillation with rapid ventricular response, appears to be settled. She is still on the amiodarone that dose being adjusted. Cardiology following. 3. Anemia, rechecked today, appears to be stable. Her aspirin is being held in light of her anemia. 4. Back pain with CT negative for metastatic disease. 5. Diabetes, stable. 6. Orthostatic hypotension, improved. 7. Leukocytosis secondary to Neupogen, fully resolved and normalized. 8. Disposition. Recheck hemoglobin in the morning; if it remains stable, anticipate discharge to home. Job ID: [id number]
[2018-11-30 04:29] VITALS: BP 128/71
[2018-11-30 08:31] LABS: Anion Gap 10 mmol/L (10-20); BUN (Urea Nitrogen) 18 mg/dL (9.8-20.1); Calc. Creatinine Clearance 62 mL/min (70-130); Calcium 8.8 mg/dL (7.8-10.44); Carbon Dioxide 26 mmol/L (23-31); Chloride 108 mmol/L (98-107); Estimated GFR-MDRD 76; Glucose 93 mg/dL (83-110); Potassium 4.1 mmol/L (3.5-5.1); Sodium 140 mmol/L (136-145)
[2018-11-30] MEDS: Amiodarone 200 MG TAB PO SCH (09:03)
[2018-11-30] MEDS: Senokot S 8.6-50 MG TAB PO SCH (09:03)
[2018-11-30 09:27] LABS: #Eosinphils 0.1 thou/uL (0.0-0.7); #Lymphocytes 1.3 thou/uL (1.20-3.40); #Monocytes 0.1 thou/uL (0.11-0.59); %Basophils 0.9 % (0.0-1.0); %Eosinophils 1.7 % (0.0-10.0); %Lymphocytes 28.5 % (21.0-51.0); %Monocytes 2.5 % (0.0-10.0); %Neutrophils 66.4 % (42.0-75.0); Hemoglobin 7.5 g/dL (12.0-16.0); Mean Corpuscular HGB CONC 33.2 g/dL (32.0-36.0); Mean Corpuscular Hemoglobin 35.2 pg (27.0-31.0); Mean Platelet Volume 7.7 fL (7.4-10.4); Platelet Count 136 thou/uL (130-400); RBC Distribution Width 14.1 % (11.5-14.5); Red Blood Cell (RBC) Count 2.13 mill/uL (4.20-5.40); White Blood Cell (WBC) Count 4.5 thou/uL (4.8-10.8)
[2018-11-30 11:08] VITALS: TEMP 99.6
--- NOTE | 2018-12-03 18:42 | EKG ---
Test Reason : Blood Pressure : / mmHG Vent. Rate : 090 BPM Atrial Rate : 090 BPM P-R Int : 134 ms QRS Dur : 132 ms QT Int : 358 ms P-R-T Axes : 056 -16 097 degrees QTc Int : 437 ms Normal sinus rhythm Non-specific intra-ventricular conduction block Nonspecific T wave abnormality Left bundle branch block Abnormal ECG Confirmed by AYO CHEEMA, FAISAL Avila ([id number]), assistant film editor MONET FLORES ([id number]) on 12/03/2018 6:41:32 PM Referred By: Confirmed By:FAISAL ROLLINS MD
== END 2018-11-30 15:55 | disposition home or self-care (01) | DRG 640 ==
LOC: ERS 10:58 → ONC 16:20 → OBSVTOIN 16:20 → IMCU/EMU 22:50
PROVIDERS: ADMIT Family Medicine; ATTEND Family Medicine
DX: E86.0 Dehydration (principal); I21.A1 Myocardial infarction type 2; C34.92 Malignant neoplasm of unspecified part of left bronchus or lung; C78.7 Secondary malignant neoplasm of liver and intrahepatic bile duct; Z87.891 Personal history of nicotine dependence; Z79.82 Long term (current) use of aspirin; Z79.84 Long term (current) use of oral hypoglycemic drugs; I95.1 Orthostatic hypotension; E11.9 Type 2 diabetes mellitus without complications; I48.91 Unspecified atrial fibrillation; T45.8X5A Adverse effect of other primarily systemic and hematological agents, initial encounter; D72.828 Other elevated white blood cell count; I44.7 Left bundle-branch block, unspecified; D64.9 Anemia, unspecified; M54.9 Dorsalgia, unspecified; I25.10 Atherosclerotic heart disease of native coronary artery without angina pectoris; E78.00 Pure hypercholesterolemia, unspecified; Z85.3 Personal history of malignant neoplasm of breast; Z92.3 Personal history of irradiation; Z79.899 Other long term (current) drug therapy
CPT/HCPCS: 36415; 36416; 71045; 72131; 80048; 80053; 81003; 82533; 82550; 82553; 83735; 83880; 84100; 84443; 84484; 85007; 85025; 85027; 85379; 85610; 85730; 87086; 93005; 93010; 94760; 96361; 96374; 96375; C9113; J1160; J1642; J1650; J2270; J2405; J3475; J7050

== ENCOUNTER 2018-12-22 10:25 | Outpatient (CLI) | payer MEDICARE ==
--- NOTE | 2018-12-22 13:36 | PET ---
Exam: PET CT skull to mid thigh COMPARISON: CT chest 10/28/2018; PET/CT 09/01/2018 HISTORY: Lung cancer status post chemotherapy TECHNIQUE: A PET/CT was performed from the skull to the mid thigh after administration of 12.3 millic uries of F-18 FDG. Evaluation was performed on a [employer] workstation. FINDINGS: NECK: No areas of hypermetabolic activity CHEST: There is a right upper lobe spiculated mass with a maximum SUV value of 5.2. No other hypermet abolic nodules are seen in either lung. The previously seen hypermetabolic left hilar mass has resolved. There are hypermetabolic and enlarged lymph nodes in the right hilar region/mediastinum with a maximu m SUV value of 7.4. The previously seen hypermetabolic left hilar and mediastinal lymph nodes have resolved. ABDOMEN/PELVIS: No areas of hypermetabolic activity SKELETON: There is a new hypermetabolic focus in the right iliac bone adjacent to the right hip joint with a maximum SUV value of 6.7. No other suspicious areas of hypermetabolic activity are seen in the skeleton. CT images used for attenuation correction show no significant abnormality. IMPRESSION: 1. There is resolution of the previously seen disease in the left chest and mediastinum. However, the re is progression of disease in the right chest and mediastinum compared to the prior examination. 2. Hypermetabolic focus in the right iliac bone could potentially represent an osseous metastasis.
== END 2018-12-22 10:26 | disposition home or self-care (01) ==
LOC: PET 10:25
PROVIDERS: ATTEND Internal Medicine Hematology & Oncology
DX: C34.90 Malignant neoplasm of unspecified part of unspecified bronchus or lung (principal)
CPT/HCPCS: 78815; A9552

== ENCOUNTER 2019-01-11 08:47 | Day surgery (SDC) | payer MEDICARE ==
[2019-01-10 11:13] VITALS: BMI 22.7
[~2019-01-11 08:47] MED LIST changes: -ISOVUE-370 76%-LOCM 1 ML ONE; +Prevnar 13-Val Conj/PF 0.5 ML SYRINGE IM ONE
[2019-01-11 09:06] LABS: Hemoglobin 9.2 g/dL (12.0-16.0); Mean Corpuscular HGB CONC 30.8 g/dL (32.0-36.0); Mean Corpuscular Hemoglobin 31.6 pg (27.0-31.0); Mean Platelet Volume 7.1 fL (7.4-10.4); Platelet Count 243 thou/uL (130-400); White Blood Cell (WBC) Count 6.4 thou/uL (4.8-10.8)
[2019-01-11 09:10] LABS: INR-International Normal Ratio 1.1; PTT 26.9 SEC (22.9-36.1); Prothrombin Time 14.2 SEC (12.0-14.7)
[2019-01-11 10:10] VITALS: BP 147/71; TEMP 98.6
[2019-01-11] MEDS ORDERED: Sodium Bicarbonate 2.5 MEQ/5 ML VIAL ONE (10:13)
--- NOTE | 2019-01-11 11:51 | CT ---
RIGHT LUNG CT GUIDED BIOPSY: HISTORY: Numerous spiculated lung masses. TECHNIQUE: Informed consent was obtained from the patient. The right upper lobe lesion was localized using CT g uidance. The overlying skin was prepped and draped in the usual sterile manner. A 1% lidocaine solution was used to anesthetize the overlying soft tissues. A small dermatotomy was made. An outer 19-gauge needle was placed into the right upper lobe lesion. Three 20-gauge core biopsies were obtained. Specimen sent to pathology. Initial pathology touch prep suggested the presence of malign ant cells. Pathology is pending. Post biopsy, a contained, tiny right upper lobe pneumothorax is present. Follow-up radiographs pendi ng. IMPRESSION: Successful CT-guided right upper lobe lung biopsy. Transcribed Date/Time: 01/11/2019 12:11 PM
--- NOTE | 2019-01-11 11:52 | RAD ---
CHEST TWO VIEWS: HISTORY: Post right upper lobe mass biopsy. TECHNIQUE: Inspiratory and expiratory radiographs of the chest obtained, post biopsy. FINDINGS: The tiny right-sided peripleural pneumothorax noted on the CT does not demonstrate itself on plain fi lm radiographs. Suspect this is loculated, in the region where the biopsy was performed. No evidence of definite pneumothorax seen. IMPRESSION: No definitely visible right-sided pneumothorax seen. Transcribed Date/Time: 01/11/2019 12:14 PM
[2019-01-11] MEDS ORDERED: Sodium Chloride 0.9% 10 ML ONE (13:19)
--- NOTE | 2019-01-11 13:49 | RAD ---
2 views chest. HISTORY: Status post biopsy. Comparison made to previous exam from earlier in the day on 01/11/2019. Inspiratory and expiratory radiographs of the chest obtained. There is a right jugular Mediport catheter in place. The biopsied right lung demonstrates no evidence of hemopneumothorax. Old healed right rib fractures seen. IMPRESSION: no evidence of pneumothorax post right lung biopsy.
== END 2019-01-11 13:30 | disposition home or self-care (01) ==
LOC: CT 08:47
PROVIDERS: ATTEND Internal Medicine Hematology & Oncology
PROC: 0BBC3ZX Excision of Right Upper Lung Lobe, Percutaneous Approach, Diagnostic (ICD-10-PCS; principal; 2019-01-11)
DX: C34.11 Malignant neoplasm of upper lobe, right bronchus or lung (principal); C78.7 Secondary malignant neoplasm of liver and intrahepatic bile duct; I48.91 Unspecified atrial fibrillation; E11.9 Type 2 diabetes mellitus without complications; Z87.891 Personal history of nicotine dependence; Z79.82 Long term (current) use of aspirin; Z79.899 Other long term (current) drug therapy
CPT/HCPCS: 32405; 36415; 71045; 77012; 85027; 85610; 85730; 88305; 88333; 88334; 88341; 88342; J1642

== ENCOUNTER 2019-01-13 08:50 | Outpatient (CLI) | payer MEDICARE ==
--- NOTE | 2019-01-13 10:30 | MRI ---
MULTIPLANAR MULTISEQUENCE PRE AND POSTCONTRAST ENHANCED MRI IMAGES BRAIN: HISTORY: Malignant neoplasm of lung. New onset dizziness. TECHNIQUE: Multiplanar multisequence pre and postcontrast enhanced MRI images of the brain are obtained. COMPARISON: Comparison made to previous exam from 09/02/2018. FINDINGS: Images demonstrate deep white matter ischemic changes. No abnormal areas of intracranial enhancement seen to suggest metastatic disease. 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 No evidence of acute stroke seen in the left MARGAUX or MCA distributions. Incidentally noted lipoma is seen in the right chief of [employer] patrol space lateral to the lateral orbital wall. This is definitely a benign lesion. IMPRESSION: No definite evidence of intracranial metastatic disease seen. Transcribed Date/Time: 01/13/2019 11:05 AM
== END 2019-01-13 08:51 | disposition home or self-care (01) ==
LOC: MRI 08:50
PROVIDERS: ATTEND Radiology Radiation Oncology
DX: C34.32 Malignant neoplasm of lower lobe, left bronchus or lung (principal); C79.51 Secondary malignant neoplasm of bone; R42 Dizziness and giddiness
CPT/HCPCS: 70553; 82565

== ENCOUNTER 2019-02-21 12:55 | Observation (INO) | payer MEDICARE ==
[2019-02-21 14:28] LABS: #Basophils 0.1 thou/uL (0.0-0.2); #Lymphocytes 1.1 thou/uL (1.20-3.40); #Monocytes 0.5 thou/uL (0.11-0.59); #Neutrophils 6.5 thou/uL (1.40-6.50); %Eosinophils 0.5 % (0.0-10.0); %Lymphocytes 13.7 % (21.0-51.0); %Monocytes 5.7 % (0.0-10.0); %Neutrophils 79.2 % (42.0-75.0); Hemoglobin 9.8 g/dL (12.0-16.0); Mean Corpuscular Hemoglobin 29.9 pg (27.0-31.0); Mean Corpuscular Volume 93.4 fL (78.0-98.0); Mean Platelet Volume 7.1 fL (7.4-10.4); Platelet Count 250 thou/uL (130-400); RBC Distribution Width 14.5 % (11.5-14.5); Red Blood Cell (RBC) Count 3.27 mill/uL (4.20-5.40); White Blood Cell (WBC) Count 8.2 thou/uL (4.8-10.8)
[2019-02-21 14:34] LABS: INR-International Normal Ratio 1.2; PTT 26.6 SEC (22.9-36.1); Prothrombin Time 14.8 SEC (12.0-14.7)
[2019-02-21 14:50] LABS: ALT (SGPT) 10 U/L (8-55); AST (SGOT) 16 U/L (5-34); Albumin 3.4 g/dL (3.4-4.8); Alkaline Phosphatase 78 U/L (40-150); Anion Gap 11 mmol/L (10-20); BUN (Urea Nitrogen) 20 mg/dL (9.8-20.1); Bilirubin, Total 0.6 mg/dL (0.2-1.2); Calc. Creatinine Clearance 0 mL/min (70-130); Calcium 10.2 mg/dL (7.8-10.44); Carbon Dioxide 30 mmol/L (23-31); Chloride 100 mmol/L (98-107); Estimated GFR-MDRD 68; Globulin 2.6 g/dL (2.4-3.5); Glucose 121 mg/dL (83-110); Potassium 3.9 mmol/L (3.5-5.1); Sodium 137 mmol/L (136-145)
[2019-02-21] MEDS ORDERED: Ondansetron PF 4 MG/2 ML Vial ONE (15:19)
[2019-02-21 16:22] LABS: Bilirubin Negative (Negative); Blood, Urine Negative (Negative); Clarity CLOUDY (Clear); Glucose, Urine (Dipstick) Negative (Negative); Leukocyte Negative (Negative); Nitrite Negative (Negative); Protein, Urine (Dipstick) Negative (Neg-Trace); Specific Gravity, Urine 1.008 (1.002-1.036); Urobilinogen 0.2 mg/dL (0.2-1.0); pH, Urine 7.5 (5.0-9.0)
[2019-02-21] MEDS ORDERED: Sodium Chloride 0.9% 1,000 ML IV SCH (20:23)
[2019-02-21] MEDS ORDERED: Ondansetron PF 4 MG/2 ML Vial IVP PRN (20:23)
[2019-02-21 20:42] VITALS: BMI 19.5
[2019-02-21] MEDS ORDERED: Acetaminophen 650 MG Suppository PR PRN (20:43)
[2019-02-21] MEDS ORDERED: Dextrose 5% in Water 1,000 ML IV PRN (21:41)
[2019-02-21] MEDS ORDERED: HumaLOG 300 UNITS/3 ML VIAL SC PRN (21:41)
[2019-02-21] MEDS ORDERED: Dextrose 50% Abboject 50 ML SYRINGE SLOW IVP PRN (21:41)
--- NOTE | 2019-02-21 22:58 | HP ---
PRIMARY CARE PHYSICIAN: Gustabo Lombardo MD CODE STATUS: Full code. TIME OF EVALUATION: 8:10 p.m. CHIEF COMPLAINT: Generalized weakness and failure to thrive. HISTORY OF PRESENT ILLNESS: This is an 78-year-old female patient with past medical history of coronary artery disease; hyperlipidemia; hypertension; pterygium; breast cancer, status post radiation surgery and chemo; and diabetes, type 2. The patient follows with Dr. Patel, came to the hospital after having severe generalized weakness. The patient has failure to thrive. This has been an ongoing problem that has been getting worse till the point that the is so concerned, that she is not eating at all, just keeping up with some mild fluids on a daily basis. It is noted that the patient also has orthostatic hypotension. The patient has systolic blood pressure dropped from 150s to the 80s, when the patient stands up. This is a known problem. Dr. Donaldson has been following this patient for that reason, and she is on midodrine and other general measures for orthostatic hypotension. The symptoms are severe, likely triggered by cancer. REVIEW OF SYSTEMS: CONSTITUTIONAL: No fever. The patient had chills. The patient has generalized weakness. The patient has a poor appetite, continues to have weight loss. RESPIRATORY: No cough, sputum production, or shortness of breath. CARDIOVASCULAR: No chest pain or palpitation. GASTROINTESTINAL: No nausea, vomiting, diarrhea, or abdominal pain. VENDING MACHINE TECHNICIAN: No dizziness, headache, or feeling lightheaded. GENITOURINARY: No burning on urination. EXTREMITIES: No leg swelling. All other systems were reviewed and negative except for the findings mentioned above. PAST MEDICAL HISTORY: Positive for the findings mentioned in the HPI. PAST SURGICAL HISTORY: Positive for orthopedic surgery in the back, lumpectomy in the left, appendectomy, tonsillectomy, ectopic , and MediPort placement. PSYCHIATRIC HISTORY: No previous psych history. SOCIAL HISTORY: The patient denies any alcohol use. No drug use. The patient is a former smoker, quit smoking more than 10 years ago. Lives at home with spouse. KNOWN ALLERGIES: No known drug allergies. REPORTED MEDICATIONS: 1. Midodrine. 2. Pantoprazole. 3. Prednisone. 4. Amiodarone. 5. Zofran. 6. Tramadol. PHYSICAL EXAMINATION: VITAL SIGNS: On presentation; blood pressure 115/73 with heart rate 91, respiratory rate was 16, temperature 97.5, pain is 8/10, and oxygen saturation 95% on room air. GENERAL APPEARANCE: The patient is alert, oriented. The patient looks ill, with chronically malnourished. HEENT: Eyes, normal conjunctivae. Moist oral mucosa. Anicteric. No JVD. RESPIRATORY: Bilateral air entry. No rales. No wheezes. Symmetric expansion. CARDIOVASCULAR: Normal rate. Regular rhythm. No murmurs. No gallop. No edema. ABDOMEN: Soft. Normal bowel sounds. MUSCULOSKELETAL: The patient has a generalized weakness. SKIN: Warm, intact. No pallor. No rash. No redness. Capillary refill seems to be intact. NEURO: No evidence of any new focal weakness. Cranial nerves seem to be intact. PSYCH: The patient is in good mood. No anxiety. Optimal judgment. LABORATORY DATA: EKG was reviewed. The patient has normal sinus rhythm with a rate of 87, NM 146, QRS 142, QT corrected 478, and LBBB. Labs were reviewed. The patient has a white count of 8.2, hemoglobin 9.8, MCV 93.4, and platelet count 250. Coagulation 14.8, INR 1.2, and PTT 26.6. Sodium 137, potassium 3.9, chloride 100, carbon dioxide 30, anion gap 11, BUN 20, creatinine 0.81, GFR 68, glucose 121, lactic acid 1.0, and calcium 10.2. LFTs were negative. Troponin is negative. Urine was done and was negative. ASSESSMENT AND PLAN: The patient will be placed in the hospital with following medical problems: 1. Anorexia and generalized weakness. These symptoms are severe. As per her , the patient has not been striving for food, the patient reported that this has been getting worse and being so severe that the patient is not eating anymore. We could start Megace if she agrees for it. 2. Orthostatic hypotension. This is a chronic problem. We will reconcile home medications. Dr. Donaldson has been following this patient for this problem and has put her on midodrine. Put the patient on fall precautions. 3. Metastatic breast cancer. The patient has mets in the liver. Dr. Patel is treating the patient with chemo, this can be followed as outpatient. 4. Chronic normocytic anemia. This could be secondary to metastatic breast cancer. No need for any acute intervention. This can be followed as outpatient. 5. History of coronary artery disease, reconcile home medications. We will treat accordingly. 6. Hyperlipidemia. Low-cholesterol diet is advised, reconcile home medications. 7. History of diabetes. There is uncontrolled blood sugar of 121. We will place the patient on sliding scale. 8. Deep venous thrombosis prophylaxis. Job ID: [id number]
[2019-02-22] MEDS: Acetaminophen 325 MG TAB PO PRN (02:52)
[2019-02-22 07:08] LABS: #Lymphocytes 1.2 thou/uL (1.20-3.40); #Monocytes 0.4 thou/uL (0.11-0.59); #Neutrophils 5.2 thou/uL (1.40-6.50); %Basophils 0.1 % (0.0-1.0); %Eosinophils 0.5 % (0.0-10.0); %Lymphocytes 17.4 % (21.0-51.0); %Monocytes 6.2 % (0.0-10.0); %Neutrophils 75.8 % (42.0-75.0); Hemoglobin 8.9 g/dL (12.0-16.0); Mean Corpuscular HGB CONC 32.6 g/dL (32.0-36.0); Mean Corpuscular Hemoglobin 30.7 pg (27.0-31.0); Mean Corpuscular Volume 94.2 fL (78.0-98.0); Mean Platelet Volume 7.5 fL (7.4-10.4); Platelet Count 220 thou/uL (130-400); RBC Distribution Width 14.5 % (11.5-14.5); White Blood Cell (WBC) Count 6.9 thou/uL (4.8-10.8)
[2019-02-22 07:27] LABS: Anion Gap 10 mmol/L (10-20); BUN (Urea Nitrogen) 16 mg/dL (9.8-20.1); Calc. Creatinine Clearance 53 mL/min (70-130); Calcium 9.8 mg/dL (7.8-10.44); Carbon Dioxide 28 mmol/L (23-31); Chloride 104 mmol/L (98-107); Estimated GFR-MDRD 77; Glucose 82 mg/dL (83-110); Sodium 138 mmol/L (136-145)
[2019-02-22] MEDS ORDERED: Ondansetron ODT 4 MG TAB PO PRN (07:53)
[2019-02-22] MEDS ORDERED: Prochlorperazine 10 MG/2 ML VIAL IM PRN (07:53)
[2019-02-22] MEDS: Fludrocortisone Acetate 0.1 MG TAB PO SCH (09:00)
[2019-02-22] MEDS: Amiodarone 200 MG TAB PO SCH (09:00)
[2019-02-22] MEDS: predniSONE 20 MG TAB PO SCH (09:00)
[2019-02-22] MEDS: Midodrine HCl 5 MG TAB PO SCH ×3 (09:00→20:13)
[2019-02-22] MEDS ORDERED: Aspirin 81 mg Enteric Coated Tablet PO SCH (09:00)
[2019-02-22] MEDS: Enoxaparin Sodium 40 MG/0.4 ML SYRINGE SC SCH ×2 (09:04→09:10)
[2019-02-22] MEDS: Sodium Chloride 0.9% 1,000 ML IV SCH ×2 (09:07→19:46)
[2019-02-22] MEDS: Senokot S 8.6-50 MG TAB PO PRN (09:19)
[2019-02-22] MEDS ORDERED: Morphine 4 MG/ML VIAL SLOW IVP PRN (11:13)
--- NOTE | 2019-02-22 12:22 | CON ---
DATE OF CONSULTATION: REASON FOR CONSULT: Lung cancer. HISTORY OF PRESENT ILLNESS: Ms. 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 She completed treatment with carboplatin, EXCEPTIONAL STUDENT EDUCATION AIDE-16, and Tecentriq. She then underwent radiation to her right iliac bone due to a metastatic lesion. She had a mass in her right lung that grew during a treatment for her small cell. It was biopsied and it was non-small cell lung cancer with mixed squamous and adeno. This mass progressed while on carboplatin, EXCEPTIONAL STUDENT EDUCATION AIDE-16, and Tecentriq. She also had autonomic dysfunction with treatment manifested by orthostatic hypotension. She was treated by Dr. Donaldson and has been on midodrine. The patient has had continued weight loss, malnutrition, and constipation throughout treatment. Over the past several weeks, her performance status has declined and she has become cachectic. states that her right hip has progressively worsened over the last few weeks. PAST MEDICAL HISTORY: 1. Stage 4 extensive small cell lung cancer, status post chemotherapy/immunotherapy. 2. Right lung non-small cell lung cancer. 3. Autonomic dysfunction. 4. Diabetes. 5. History of breast cancer. PAST SURGICAL HISTORY: 1. Breast surgery in 1996. 2. Back surgery. 3. Atopic . ALLERGIES: NO KNOWN DRUG ALLERGIES. HOME MEDICATIONS: 1. Amiodarone 200 mg daily. 2. Atorvastatin 20 mg daily. 3. MVI daily. 4. Megestrol 10 mL daily. 5. Midodrine 2.5 mg daily. 6. Zofran p.r.n. 7. Protonix 40 mg daily. 8. Tramadol p.r.n. 9. Prednisone 10 mg daily. FAMILY HISTORY: Noncontributory. SOCIAL HISTORY: , has 3 children. Lives with her spouse. No alcohol, tobacco, or illicit drug use. REVIEW OF SYSTEMS: CONSTITUTIONAL: No fever, chills, or night sweats. EYES: No blurred or double vision. ENT: No pain, hoarseness, sore throat, or dysphagia. CV: No chest pain, palpitations, or syncope. RESPIRATORY: No shortness of breath, dyspnea on exertion, or orthopnea. GI: No nausea, vomiting, diarrhea, constipation, or abdominal pain. : No dysuria or hematuria. MUSCULOSKELETAL: Positive for right hip pain. SKIN: No rash. HEMATOLOGIC: No petechiae or purpura. NEUROLOGIC: Positive for weakness. No headache, numbness, tingling, or seizure activity. PSYCH: No anxiety or depression. PERTINENT LABS AND X-RAYS: Current WBCs are 6.9, hemoglobin 8.9, hematocrit 27.3, platelet count 220,000, 76% neutrophils, and 17% lymphocytes. PT is 14.8, INR 1.2, and PTT 26.6. Sodium is 138, potassium 4.0, chloride 104, CO2 is 28, BUN is 16, creatinine 0.73, calcium is 9.8, bilirubin is 0.6, AST 16, ALT is 10, and alkaline phosphatase is 78. Troponin is negative. Serum total protein is 6, albumin 3.4, and globulin 2.6. Urine was negative. ASSESSMENT: 1. Non-small cell lung cancer with a mixed squamous adeno tumor with pelvic mets. 2. Extensive stage small cell lung cancer, status post chemotherapy and immunotherapy. 3. Autonomic dysfunction with orthostatic hypotension. 4. Failure to thrive. DISCUSSION: The patient and have had multiple conversations with Dr. Patel in the past regarding her poor prognosis. Unfortunately, they feel that it due to memory issues. They do not understand the gravity of the situation. I again sat down and spoke with them spending over 30 minutes discussing her prognosis. The patient continues to refuse to eat and has gotten progressively weaker combined with her orthostatic hypotension. She experiences when she stands. She has become very difficult for to assist her at the house. She has two lung cancers. Her small cell is in remission, but unfortunately her non-small cell progressed during treatment and now has recurrent right hip pain, where lesion was on scan. I feel that she will be best served by hospice and focusing on pain control and quality of life. Recommend either home with hospice or to a facility, although I will ask hospice, [facility] to see if she would qualify for inpatient for pain control. This was discussed at length with the patient. I have discussed this with Dr. Mata and Dr. Patel. The patient and spouse agree to consult. We will follow along with her hospitalization. Job ID: [id number]
[2019-02-22] MEDS: Morphine 2 MG/ML SYRINGE SLOW IVP PRN ×3 (12:32→21:06)
--- NOTE | 2019-02-22 14:22 | PDOC.PN ---
- Subjective Encounter Start Date: 02/22/19 (f/u weakness) Encounter Start Time: 14:19 Subjective: reports they will meet with hospice today to discuss -: inpt vs home with hospice care. Pt c/o right hip pain, and lightheaded -: with gettnig up to commode - Objective Resuscitation Status - Order Detail: 02/21/19 20:43 Resuscitation Status Routine Resuscitation Status: FULL: Full Resuscitation Vital Signs & Weight: Vital Signs (12 hours) Temp Pulse Resp BP BP Pulse Ox 02/22/19 11:55 98.5 F 92 16 147/73 H 95 02/22/19 08:00 98.1 F 68 16 157/68 H 97 02/22/19 07:50 98.7 F 68 16 157/68 H 97 02/22/19 02:56 98.2 F 75 18 160/70 H 94 L Weight Weight 121 lb 8 oz I&O: 02/21/19 02/22/19 02/23/19 06:59 06:59 06:59 Intake Total 920 180 Balance 920 180 Result Diagrams: 02/22/19 06:20 02/22/19 06:20 Additional Labs: Accuchecks 02/22/19 02/21/19 05:29 22:33 POC Glucose 103 112 H Phys Exam - Physical Examination Constitutional: NAD Psychiatric: normal affect Dx/Plan (1) Metastatic cancer Code(s): C79.9 - SECONDARY MALIGNANT NEOPLASM OF UNSPECIFIED SITE Status: Acute (2) Anorexia Code(s): R63.0 - ANOREXIA Status: Acute (3) Orthostatic hypotension Code(s): I95.1 - ORTHOSTATIC HYPOTENSION Status: Acute - Plan * Appreciate Oncology consult - pt/ demonstrate understanding of extent of metastatic disease. To meet with hospice today with regards to support and care at end of life * * lidocaine patch for pain and continue meds ordered * Znode system for urine collection * d/c aspirin and lovenox * * No questions or further needs at end of eval.
[2019-02-22] MEDS: Lidocaine 5% Patch TD SCH (15:01)
[2019-02-22] MEDS: traMADol HCl 50 MG TAB PO PRN (17:45)
[2019-02-23] MEDS ORDERED: Lidocaine Patch Removal TOP SCH (02:30)
[2019-02-23] MEDS: Sodium Chloride 0.9% 1,000 ML IV SCH (06:35)
[2019-02-23] MEDS: Fludrocortisone Acetate 0.1 MG TAB PO SCH (08:47)
[2019-02-23] MEDS: Midodrine HCl 5 MG TAB PO SCH ×2 (08:47→14:26)
[2019-02-23] MEDS: Amiodarone 200 MG TAB PO SCH (08:47)
[2019-02-23] MEDS: predniSONE 20 MG TAB PO SCH (08:47)
[2019-02-23] MEDS: traMADol HCl 50 MG TAB PO PRN ×2 (08:51→17:08)
[2019-02-23] MEDS: Acetaminophen 325 MG TAB PO PRN ×2 (08:51→17:07)
[2019-02-23] MEDS: Senokot S 8.6-50 MG TAB PO PRN (09:01)
[2019-02-23] MEDS: Lidocaine 5% Patch TD SCH (14:27)
[2019-02-23 16:00] VITALS: BP 161/72; TEMP 97.5
--- NOTE | 2019-02-24 01:37 | DIS ---
DATE OF ADMISSION: 02/21/2019 DATE OF DISCHARGE: 02/23/2019 CONSULTANTS: Alisa Nunn, Nurse practitioner of Oncology. MEDICATIONS: Reconciled at discharge. New medication; Lidoderm patch, 2 patches to the right hip for 12 hours on and then remove in 12 hours and apply a new patch the next day. Medications to resume: 1. Amiodarone 200 mg daily. 2. Cinnamon Bark 500 mg daily. 3. Cranberry fruit extract 500 mg daily. 4. Fludrocortisone 0.1 mg daily. 5. Midodrine 5 mg t.i.d. 6. Multivitamin daily. 7. Zofran 8 mg every 8 hours as needed. 8. Protonix 40 mg b.i.d. 9. Prochlorperazine 10 mg IM every 6 hours as needed. 10. Senokot-S 2 tablets b.i.d. p.r.n. 11. Turmeric one capsule daily. 12. Vitamin B complex one capsule daily. 13. Prednisone 10 mg daily. 14. Tramadol 1 or 2 tablets three times daily as needed for pain. DISCHARGE DISPOSITION: Home with [facility] support. FINAL DIAGNOSES: 1. Weakness and debility in conjunction with orthostatic hypotension secondary to metastatic cancer. 2. Anorexia secondary to above. 3. Stage IV small-cell lung cancer, status post chemotherapy and immunotherapy and right lung non-small cell lung cancer. 4. History of dyslipidemia. 5. History of coronary artery disease. 6. Normocytic anemia. HISTORY OF PRESENT ILLNESS: Ms. Lechuga is an 78-year-old female with the above medical problems, who presented to the emergency room with very poor p.o. intake , orthostatic hypotension, and generalized weakness. Please see history and physical for more details. HOSPITAL COURSE: The patient has been hydrated with IV fluids, with some improvement in symptoms. She met with RORO Nunn and discussed with her the current severity of the metastatic disease, and the overall poor prognosis. Given the autonomic dysfunction and orthostatic hypotension, the patient is not a candidate for further chemotherapy. With that understanding, the patient and her met with [facility], and have decided to go home with their support. For pain, lidocaine patch to her right hip has been added and she reports some improvement. She also has tramadol at home and will continue this. PHYSICAL EXAMINATION: VITAL SIGNS: Blood pressure 159/69, temp 98.1, pulse 70, respirations 16, sats 93% on room air. GENERAL: She is awake, alert, responsive, in no apparent distress. LUNGS: Clear to auscultation. HEART: Normal S1 and S2. Regular rate and rhythm. No audible murmurs. ABDOMEN: Soft with present bowel sounds. She does have prominence of her right hip. CAMACHO FINDINGS AND TEST RESULTS: CBC; 6.9 8.9, 27.3, 220. Chemistry; 138, 4.0, 104, 28, 16, 0.7, 382. Urinalysis is negative. Urine culture, no growth at 48 hours. DIET: As tolerated. ACTIVITY: As tolerated. FOLLOWUP: With [facility]. Reviewed with patient and her this hospitalization, the addition of the lidocaine patch for improved pain control, and further needs at home known to be assisted by [facility]. In discussion with the patient, she will be transported by an ambulance to home. She still desires to return to the hospital if there are any acute emergencies; therefore, her code status on discharge is full. No questions or further needs at end of evaluation. CODE STATUS: exceptional student education aide SPENT: Total time coordinating discharge is 30 minutes. Job ID: [id number] MTDD
--- NOTE | 2019-02-25 16:13 | EKG ---
Test Reason : WEAKNESS Blood Pressure : / mmHG Vent. Rate : 087 BPM Atrial Rate : 087 BPM P-R Int : 146 ms QRS Dur : 142 ms QT Int : 398 ms P-R-T Axes : 062 -34 094 degrees QTc Int : 478 ms Normal sinus rhythm Left axis deviation Left bundle branch block Abnormal ECG No [place] No ST elevation/OR Unchanged from 08/27/2017 Confirmed by ASAD BARRIOS M.D. ([id number]), field map editor ENEDINA GARZA ([id number]) on 02/25/2019 4:12:43 PM Referred By: Confirmed By:ASAD BARRIOS M.D.
== END 2019-02-23 18:25 | disposition home health service (06) ==
LOC: ERS 12:55 → ONC 18:20
PROVIDERS: ADMIT Family Medicine; ATTEND Family Medicine
DX: C79.89 Secondary malignant neoplasm of other specified sites (principal); C34.92 Malignant neoplasm of unspecified part of left bronchus or lung; C34.91 Malignant neoplasm of unspecified part of right bronchus or lung; I95.1 Orthostatic hypotension; R63.0 Anorexia; R62.7 Adult failure to thrive; I25.10 Atherosclerotic heart disease of native coronary artery without angina pectoris; D64.9 Anemia, unspecified; E78.5 Hyperlipidemia, unspecified; I10 Essential (primary) hypertension; E11.9 Type 2 diabetes mellitus without complications; I44.7 Left bundle-branch block, unspecified; Z87.891 Personal history of nicotine dependence; Z68.1 Body mass index [BMI] 19.9 or less, adult; Z85.3 Personal history of malignant neoplasm of breast; Z79.899 Other long term (current) drug therapy
CPT/HCPCS: 80048; 80053; 81003; 82962 ×3; 83605; 84484; 85025 ×2; 85610; 85730; 87086; 93005; 96361 ×4; 96374; 96375; 96376; 99285; G0378 ×2; 36415; 36416; J1642; J1650; J2270; J2405; J7512